=== PATIENT | female | born 1955 | race Two or more races ===

== ENCOUNTER 2016-12-13 23:55 | Emergency (ER) | payer BC ==
--- NOTE | ~2016-12-13 | CR63 ---
[facility] A Service of [facility] RADIOLOGY TEXT RESULTS PATIENT: NORA ENGLE LOCATION: [facility] : 51 UNIT #: [id number] AGE: [address]: Navarro Alvarez MD SEX: F ORDER DR: [id number] [facility] [address] [place], [place] [address] [id number] E MR#: [id number] Acc #: [id number] NAME: NORA ENGLE : 1955 SEX: F STUDY DATE/TIME: 12/14/2016 0:24 UNIT: [facility] ROOM: STUDY DESCRIPTION: CR Chest 2 View Attending Physician: John Alvarez M.D. Ordering Physician: Vincenzo Uribe M.D. Primary Care Physician: Mateo Leiva M.D. MEDICAL IMAGING REPORT This report is preliminary unless electronic signature is present EXAM PA and lateral chest 12/14/2016 00:24 HISTORY Cough, weakness and back pain for 2 days. COMPARISON PA and lateral chest radiograph 11/10/2014. FINDINGS There is stable mild cardiac enlargement. Pulmonary vascularity is normal. No pleural effusion or pneumothorax is identified. Stable asymmetric elevation right hemidiaphragm. Mild degenerative spurring in the thoracic spine. IMPRESSION Stable mild cardiac enlargement. No acute chest findings or significant change compared to 11/10/2014. Dictated by... Neda Chirinos M.D. THIS IS AN ELECTRONICALLY VERIFIED REPORT Neda Chirinos M.D. at 12/14/2016 10:02 PM SWATI/kaylin TD: 12/14/2016 07:11 JOB #: [id number] MEDICAL IMAGING REPORT COPY
[2016-12-14 00:31] LABS: INFLUENZA A NEG (NEG); INFLUENZA B NEG (NEG)
[2016-12-14 01:27] LABS: URINE SOURCE CLEAN CATCH
[2016-12-14 01:31] LABS: URINE APPEARANCE CLEAR; URINE BILIRUBIN NEG (NEG); URINE BLOOD NEG (NEG); URINE COLOR YELLOW; URINE GLUCOSE NEG (NEG); URINE KETONE NEG (NEG); URINE LEUKOCYTE ESTERASE 1+ (NEG); URINE NITRATE NEG (NEG); URINE PH 7.5 (5-8); URINE PROTEIN NEG (NEG); URINE UROBILINOGEN 0.2 MG/DL (NEG)
[2016-12-14 01:34] LABS: CULTURE INDICATED? YES; U HYALINE CASTS AUWI 0-2 /[LPF]; URBCS1 AUWI 0-2 /[HPF] (0-2); URINE BACTERIA AUWI NEG (NEGATIVE)
[2016-12-14 01:45] LABS: URINE SQUAMOUS EPITHELIAL CELL OCC /[HPF]
[2016-12-14 02:15] LABS: BASOPHIL% 0.5 % (0-2.5); EOSINOPHIL% 0.6 % (0.0-7.0); HEMATOCRIT 37.6 % (35.0-45.0); HEMOGLOBIN 12.6 gm/dL (12.0-16.0); LYMPHOCYTE# 0.5 X10e3 (1.0-3.5); LYMPHOCYTE% 8.7 % (17.0-45.0); MEAN CELL VOLUME 85.5 FL (83-96); MEAN CORPUSCULAR HEMOGLOBIN 28.6 PG (28-34); MEAN CORPUSCULAR HGB CONC 33.4 g/dL (30-36); MEAN PLATELET VOLUME 9.7 FL (6.5-11.5); MONOCYTE# 0.5 X10e3 (0-1.0); MONOCYTE% 9.6 % (3.0-12.0); NEUTROPHIL# 4.4 X10e3 (1.5-7.1); NEUTROPHIL% 80.6 % (40-75); PLATELET COUNT 158 X10e3 (140-420); RED CELL DISTRIBUTION WIDTH 12.7 % (11.0-15.5); WHITE BLOOD COUNT 5.4 X10e3 (4.0-10.5)
[2016-12-14 02:16] LABS: DIFF IND NO
[2016-12-14 02:31] LABS: ALBUMIN SERUM 3.9 g/dL (3.5-5.0); ALKALINE PHOSPHATASE 85 U/L (32-92); ALT (SGPT) 25 U/L (10-40); AST (SGOT) 29 U/L (10-42); BILIRUBIN, DIRECT 0.1 mg/dL (0.0-0.2); BILIRUBIN,INDIRECT 0.8 mg/dL (0.0-0.9); BILIRUBIN,TOTAL 0.9 mg/dL (0.2-2.0); BLOOD UREA NITROGEN 15 mg/dL (9-23); CALCIUM SERUM 8.5 mg/dL (8.4-10.2); CARBON DIOXIDE 25 mmol/L (22-31); CHLORIDE 106 mmol/L (100-111); CREATININE SERUM 0.6 mg/dL (0.6-1.4); GLOM FILT RATE Estimated ABOVE60 mL/min (>60); GLUCOSE FASTING 139 mg/dL (70-110); POTASSIUM 3.2 mmol/L (3.5-5.1); PROTEIN TOTAL SERUM 6.9 g/dL (6.0-8.3); SODIUM 138 mmol/L (135-145)
[2016-12-14] MEDS ORDERED: LEVAQUIN PO (03:13)
[2016-12-14] MEDS ORDERED: ZOFRAN2 MG/M1 SL (03:14)
== END 2016-12-14 03:14 | disposition home or self-care (01) ==
LOC: CED 23:55
PROVIDERS: Emergency Medicine
DX: N39.0 Urinary tract infection, site not specified (principal); E87.6 Hypokalemia
CPT/HCPCS: 71020; 80048; 80076; 81003; 85025; 87086; 87804; 99283